=== PATIENT | male | born 1950 ===

== ENCOUNTER 2022-04-02 07:25 | Inpatient (IN) | payer OTHER, MEDICARE ==
[~2022-04-02] VITALS: Ht 175.3 cm; Wt 83.0 kg
[2022-04-02] MEDS ORDERED: ipratropium/albuterol 3ml nebule NEB ONE (07:30)
[2022-04-02] MEDS ORDERED: albuterol 2.5 MG/3 ML nebule CONTNEB PRN (07:30)
[2022-04-02] MEDS ORDERED: methylPREDNISolone sod succ 125mg/2ml vial IV ONE (07:30)
[2022-04-02] MEDS ORDERED: albuterol 2.5 MG/3 ML nebule ONE (07:37)
[2022-04-02] MEDS ORDERED: furosemide 10 MG/1 ML 10ml inj IV ONE (07:50)
--- NOTE | 2022-04-02 07:50 | NUR ---
RT AT BEDSIDE, PLACING PT ON BIPAP AND DRAWING ABG
[2022-04-02 08:14] LABS: ABG BASE EXCESS -11.8 mmol/L (-2.0-2.0); ABG HCO3 15.2 mmol/L (22.0-26.0); ABG OXYGEN SATURATION 99.2 % (94-97); ABG PCO2 (T) 37.1 mmHg (35.0-48.0); ABG PO2 (T) 436.8 mmHg (75.0-100.0); FCOHb 0.9 % (0.0-3.9); FMetHb 0.2 % (0.0-1.5); FO2Hb 98.1 % (94-97); PATIENT TEMPERATURE 36.5; RESPIRATORY RATE 10 b/min; TIDAL VOLUME 977 mL; TOTAL HEMOGLOBIN 13.8 G/dl (14.0-17.9)
[2022-04-02 08:23] LABS: BASOPHILS % (AUTO) 0.2 % (0-1); EOSINOPHILS % (AUTO) 0 % (0-6); HEMATOCRIT 39.1 % (42.0-52.0); HEMOGLOBIN 12.8 g/dl (14.0-17.9); LYMPHOCYTES # (AUTO) 0.8 X10'3 (1.1-4.8); MEAN CORPUSCULAR HEMOGLOBIN 31.6 PG (27.0-31.0); MEAN CORPUSCULAR HGB CONC 32.6 g/dL (33.0-36.5); MEAN CORPUSCULAR VOLUME 96.9 FL (78-98); MEAN PLATELET VOLUME 6.4 FL (7.4-10.4); MONOCYTES # (AUTO) 0.7 X10'3 (0-0.9); MONOCYTES % (AUTO) 4.5 % (2-12); NEUTROPHILS # (AUTO) 14.6 X10'3 (1.8-7.7); NEUTROPHILS % (AUTO) 90.3 % (42-75); PLATELET COUNT 434 X10'3 (140-440); RED BLOOD COUNT 4.04 X10'6 (4.70-6.10); RED CELL DISTRIBUTION WIDTH 13.8 % (11.5-14.5); WHITE BLOOD COUNT 16.2 X10'3 (4.5-11.0)
--- NOTE | 2022-04-02 08:41 | NUR ---
PT HAS DRAMATICALLY IMPROVED. RR DOWN TO 10 ON BIPAP AT 40% FIO2 - PT IS RESTING WITH EYES CLOSED AND NO LONGER SHOWING OUTWARD S\S DISTRESS.
--- NOTE | 2022-04-02 09:18 | NUR ---
ECHO AT BEDSIDE - MD WAS JUST DOING RE-EVAL, STATES OK TO TRIAL OFF BIPAP AND USE N\C, WILL TAKE PT OFF BIPAP AFTER ECHO IS DONE.
[2022-04-02 09:31] LABS: ALANINE AMINOTRANSFERASE 37 U/L (12-78); ALBUMIN 3.8 G/DL (3.4-5.0); ALBUMIN/GLOBULIN RATIO 0.8 (1.1-1.5); ALKALINE PHOSPHATASE 106 IU/L (46-116); ANION GAP 13 (8-16); ASPARTATE AMINO TRANSFERASE 64 U/L (10-37); BILIRUBIN,TOTAL 0.4 MG/DL (0.1-1.0); BLOOD UREA NITROGEN 67 MG/DL (7-18); BUN/CREATININE RATIO 22.3 (5.4-32.0); CALCIUM 9.1 MG/DL (8.5-10.1); CHLORIDE 106 MMOL/L (99-107); GLUCOSE 166 MG/DL (70-104); SODIUM 140 MMOL/L (135-145); TOTAL CARBON DIOXIDE 21.2 MMOL/L (24-32); TOTAL PROTEIN 8.4 G/DL (6.4-8.2); eGFR 21 ML/MIN
[2022-04-02] MEDS ORDERED: SODIUM ZIRCONIUM CYCLOSILICATE 10 GM POWD.PACK PO STA (09:43)
[2022-04-02] MEDS ORDERED: calcium chloride 100 MG/1 ML inj IV ONE (09:45)
[2022-04-02] MEDS ORDERED: insulin regular, human U-100 3ml vial - multi-dose IV ONE (09:45)
[2022-04-02] MEDS ORDERED: dextrose 50%-water 50ml dispensing syringe IV ONE (09:45)
--- NOTE | 2022-04-02 10:08 | NUR ---
TRIALED PT OFF BIPAP- AFTER ABOUT 2 MINUTES HE BECAME RESTLESS AND STATED HE COULDN'T BREATHE. SATS WERE 95 ON 2L VIA N\C - HE WAS PLACED BACK ON BIPAP AND IS IMPROVING. CALLED PHARMACY TO ALERT THEM THAT WE DO NOT HAVE LOKELMA OR INSULIN IN OUR [facility] - WILL MEDICATE PT RAVINDER.
[2022-04-02] MEDS ORDERED: aspirin 81mg tab.chew PO ONE (10:55)
[2022-04-02] MEDS ORDERED: nitroGLYCERIN-Tridil 50MG/D5W 250 ML IV PRN (10:55)
[2022-04-02] MEDS ORDERED: ondansetron/PF 4mg/2ml inj IV PRN (11:05)
[2022-04-02] MEDS ORDERED: magnesium Cl slow-release 64mg tablet PO PRN (11:05)
[2022-04-02] MEDS ORDERED: acetaminophen 325mg tablet PO PRN (11:05)
[2022-04-02] MEDS ORDERED: potassium Cl 40MEQ/1/2NS 520ml 520 ML IV PRN (11:05)
[2022-04-02] MEDS ORDERED: normal saline 1000ml 1,000 ML IV SCH (11:05)
[2022-04-02] MEDS ORDERED: potassium Cl 20 mEq SR tablet PO PRN ×2 (11:05)
[2022-04-02] MEDS ORDERED: magnesium 4gm in 100ml NS 100 ML IV PRN (11:05)
--- NOTE | 2022-04-02 11:45 | NUR ---
PER MD TITRATE NTG DRIP TO KEEP SYSTOLIC ABOVE 100 PT RESTING AT THIS TIME. HE HAS YET TO HAVE URINE OUTPUT SINCE RECEIVING THE 80MG LASIX EARLIER THIS MORNING.
[2022-04-02] MEDS ORDERED: NALO4SPR BOTHNARES (14:46)
[2022-04-02] MEDS ORDERED: AMLO2.5T2 PO (14:46)
[2022-04-02] MEDS ORDERED: UMEC62.5 INH (14:46)
[2022-04-02] MEDS ORDERED: LISI5TAB22 PO (14:46)
[2022-04-02] MEDS ORDERED: TRAZ-251 PO (14:46)
[2022-04-02] MEDS ORDERED: FURO-150 PO (14:46)
[2022-04-02] MEDS ORDERED: ATOR10TA87 PO (14:46)
[2022-04-02] MEDS ORDERED: GABA600T13 PO (14:46)
[2022-04-02 15:51] LABS: ALBUMIN 3.5 G/DL (3.4-5.0); ANION GAP 16 (8-16); BLOOD UREA NITROGEN 70 MG/DL (7-18); BUN/CREATININE RATIO 23.4 (5.4-32.0); CALCIUM 9.8 MG/DL (8.5-10.1); CHLORIDE 104 MMOL/L (99-107); CREATININE 2.99 MG/DL (0.60-1.10); GLUCOSE 169 MG/DL (70-104); POTASSIUM 5.4 MMOL/L (3.5-5.1); SODIUM 139 MMOL/L (135-145); TOTAL CARBON DIOXIDE 18.9 MMOL/L (24-32); eGFR 21 ML/MIN
--- NOTE | 2022-04-02 15:56 | NUR ---
HOSPITALIST PAGED REGARDING ELEVATED TROPONINS. NEED TO CLARIFY IF PT SHOULD BE RECEIVING HEPARIN OR LOVENOX.
[2022-04-02] MEDS ORDERED: heparin 10,000 units/1 ML INJ IV ONE ×2 (16:05)
[2022-04-02] MEDS ORDERED: heparin 10,000 units/1 ML INJ IV PRN (16:05)
[2022-04-02 16:38] LABS: APTT 24 SECONDS (22-32)
--- NOTE | 2022-04-02 16:45 | NUR ---
Patient in room PCU 3012. I have received report from Vini CARCAMO and had the opportunity to ask questions and assume patient care.Pt settled into room, venti mask 40%. pt brea attached. Hep gtt started. Addendum: 04/02/22 at 1747 by Mikayla Ramos RN Amended: Links added.
[2022-04-02 16:50] VITALS: BP 123/65
[2022-04-02] MEDS: heparin 25,000 UNIT/250ml bag 250 ML IV PRN (17:18)
--- NOTE | 2022-04-02 18:20 | NUR ---
Problems reprioritized. Patient report given, questions answered & plan of care reviewed with Roberto CARCAMO. Bedside report completed.Pt o2 sat 96 on 40% venti mask.hep gtt AT 1000 units/hr. Addendum: 04/02/22 at 1823 by Mikayla Ramos RN Amended: Links added.
[2022-04-02] MEDS ORDERED: ASPI-1071 PO (18:43)
[2022-04-02] MEDS ORDERED: BUDE10.2 IH (18:44)
[2022-04-02] MEDS ORDERED: TEST75GE10 TOP (18:45)
[2022-04-02] MEDS ORDERED: VENL75TA4 PO (18:45)
[2022-04-02] MEDS ORDERED: CHOL20004 PO (18:46)
[2022-04-02] MEDS ORDERED: ALBU17AE26 IH (18:47)
[2022-04-02] MEDS ORDERED: DICL100G30 TOP (18:50)
[2022-04-02] MEDS ORDERED: HYDR-3972 PO (18:51)
[2022-04-02] MEDS ORDERED: OMEP20CA16 PO (18:52)
[2022-04-02] MEDS ORDERED: CARB1DRO5 OP (18:53)
[2022-04-02] MEDS ORDERED: TIZA-205 PO (18:55)
[2022-04-02] MEDS ORDERED: SENN-263 PO (18:55)
[2022-04-02] MEDS ORDERED: TRIA15CR61 TOP (18:56)
[2022-04-02 19:15] VITALS: BP 123/65
[2022-04-02] MEDS: aspirin 81mg, enteric-coated 1 TAB TABLET.DR PO SCH (19:15)
[2022-04-02] MEDS ORDERED: polyvinyl alcohol ophthalmic drops 15ml bottle EACHEYE PRN (19:15)
[2022-04-02] MEDS ORDERED: traZODone 50mg tablet PO PRN (19:15)
[2022-04-02] MEDS ORDERED: sennosides 8.6mg tablet PO PRN (19:15)
[2022-04-02] MEDS ORDERED: tizanidine 4mg tablet PO PRN (19:15)
[2022-04-02] MEDS: K and/or MAG REPLACEMENT MC SCH (19:42)
[2022-04-02] MEDS: HYDROcodone/acetaminophen 10/325mg tab PO PRN (19:57)
[2022-04-02] MEDS: venlafaxine 37.5mg tablet PO SCH (20:00)
[2022-04-02 22:00] VITALS: BP 127/71
--- NOTE | 2022-04-03 | NUR ---
Pt. is awake alert oriented on Cardiac Heparin gtt at 1000 u/hr. no c/o pain or discomfort on FM 10L. Coughing intermittently pink tinged secretions, voids per urinal yellow clear urine. Pt. c/o Sob and feeling hot and sweating. Placed on BIPAP 40% tolerated well. Cool packs applied stated felt better medicated for generalized aches tolerated well slept x 3 hours. .
[2022-04-03] MEDS: heparin 25,000 UNIT/250ml bag 250 ML IV PRN (00:30)
[2022-04-03 02:00] VITALS: BP 132/63
--- NOTE | 2022-04-03 04:00 | NUR ---
Pt. attempted to get out of bed without assistance. Placed on BS Commode had large dark brown and maroon/ melanotic stool. notified Heparin gtt stopped. CBC drawn results noted.
[2022-04-03 05:27] LABS: BASOPHILS # (AUTO) 0.1 X10'3 (0-0.2); BASOPHILS % (AUTO) 0.4 % (0-1); EOSINOPHILS % (AUTO) 0 % (0-6); HEMATOCRIT 27.8 % (42.0-52.0); HEMOGLOBIN 8.9 g/dl (14.0-17.9); LYMPHOCYTES # (AUTO) 1.2 X10'3 (1.1-4.8); LYMPHOCYTES % (AUTO) 7.7 % (21-51); MEAN CORPUSCULAR HEMOGLOBIN 30.7 PG (27.0-31.0); MEAN CORPUSCULAR VOLUME 95.9 FL (78-98); MEAN PLATELET VOLUME 6.7 FL (7.4-10.4); MONOCYTES # (AUTO) 1.2 X10'3 (0-0.9); MONOCYTES % (AUTO) 7.2 % (2-12); NEUTROPHILS # (AUTO) 13.7 X10'3 (1.8-7.7); NEUTROPHILS % (AUTO) 84.7 % (42-75); PLATELET COUNT 306 X10'3 (140-440); RED CELL DISTRIBUTION WIDTH 13.6 % (11.5-14.5); WHITE BLOOD COUNT 16.1 X10'3 (4.5-11.0)
[2022-04-03 05:44] LABS: ALBUMIN 3.1 G/DL (3.4-5.0); ANION GAP 11 (8-16); BLOOD UREA NITROGEN 102 MG/DL (7-18); CALCIUM 8.8 MG/DL (8.5-10.1); CHLORIDE 105 MMOL/L (99-107); CREATININE 2.49 MG/DL (0.60-1.10); GLUCOSE 118 MG/DL (70-104); MAGNESIUM 2.2 MG/DL (1.5-2.4); POTASSIUM 4.5 MMOL/L (3.5-5.1); SODIUM 138 MMOL/L (135-145); eGFR 26 ML/MIN
[2022-04-03 08:00] VITALS: BP 132/59
[2022-04-03] MEDS: K and/or MAG REPLACEMENT MC SCH ×2 (08:00→20:00)
[2022-04-03] MEDS: TESTOSTERONE PUMP TOP SCH (08:00)
[2022-04-03] MEDS: aspirin 81mg, enteric-coated 1 TAB TABLET.DR PO SCH (08:00)
[2022-04-03] MEDS: venlafaxine 37.5mg tablet PO SCH ×2 (09:02→20:00)
[2022-04-03] MEDS: HYDROcodone/acetaminophen 10/325mg tab PO PRN ×3 (09:07→20:03)
[2022-04-03 11:00] VITALS: BP 95/71
--- NOTE | 2022-04-03 12:45 | NUR ---
PAGER ID: [phone] MESSAGE: Roslyn [phone] RE: Ace Sibley room 3012B - can we feed him or keep NPO
--- NOTE | 2022-04-03 14:43 | NUR ---
PAGER ID: [phone] MESSAGE: Roslyn [phone] RE: Ace Toñito room 3012B - patient having a hard time breathing - RT notified. Can we get Albuterol ordered for RT PRN.
[2022-04-03] MEDS ORDERED: dextrose 5%-water 1,000 ML IV SCH (14:47)
[2022-04-03 15:00] VITALS: BP 172/86
[2022-04-03] MEDS: ipratropium/albuterol 3ml nebule NEB SCH ×3 (15:01→23:07)
[2022-04-03 15:44] LABS: % IRON SATURATION 43 % (11-46); IRON 102 UG/DL (53-167); TOTAL IRON BINDING CAPACITY 237 UG/DL (259-388)
[2022-04-03 18:00] VITALS: BP 108/57
--- NOTE | 2022-04-03 18:35 | NUR ---
Problems reprioritized. Patient report given, questions answered & plan of care reviewed with Eileen, RN.
[2022-04-03] MEDS: pantoprazole 40mg Tablet.DR PO PRN (20:02)
[2022-04-03] MEDS: methylPREDNISolone sod succ 125mg/2ml vial IV SCH (21:01)
[2022-04-03 22:00] VITALS: BP 113/59
[2022-04-04] VITALS (7 sets, daily range): BP systolic 68–170; BP diastolic 33–98
--- NOTE | 2022-04-04 | NUR ---
Pt. is awake alert oriented and in good spirits, agreed to stay in facility for and additional night until lungs are better.Pt. is on 3L NC tolerating well. Pt. has a peripheral IV with D5W infusing. Pt. became out of breath and pale and diaphoretic when off of 02, pt. attempted to use the urinal without assistance with 02 off. Monitor showed Junctional rhythm at 60 b/m bp check 114/53 sitting. Pt. placed back to bed placed on BIPAP 40%. Tolerated well monitor shows rhythm back to NSR 90 BP 143/63 supine.
[2022-04-04] MEDS: ipratropium/albuterol 3ml nebule NEB SCH ×3 (02:27→11:02)
--- NOTE | 2022-04-04 06:21 | NUR ---
Patient in room PCU 3012. I have received report from CARLOS ALBERTO Arlelano and had the opportunity to ask questions and assume patient care.
[2022-04-04 07:11] LABS: BASOPHILS % (AUTO) 0.1 % (0-1); EOSINOPHILS % (AUTO) 0 % (0-6); HEMATOCRIT 25.1 % (42.0-52.0); HEMOGLOBIN 8.5 g/dl (14.0-17.9); LYMPHOCYTES # (AUTO) 0.6 X10'3 (1.1-4.8); LYMPHOCYTES % (AUTO) 7.6 % (21-51); MEAN CORPUSCULAR HEMOGLOBIN 32.1 PG (27.0-31.0); MEAN CORPUSCULAR HGB CONC 33.7 g/dL (33.0-36.5); MEAN CORPUSCULAR VOLUME 95.3 FL (78-98); MEAN PLATELET VOLUME 6.5 FL (7.4-10.4); MONOCYTES # (AUTO) 0.3 X10'3 (0-0.9); MONOCYTES % (AUTO) 3.7 % (2-12); NEUTROPHILS # (AUTO) 7.4 X10'3 (1.8-7.7); NEUTROPHILS % (AUTO) 88.6 % (42-75); PLATELET COUNT 308 X10'3 (140-440); RED BLOOD COUNT 2.64 X10'6 (4.70-6.10); RED CELL DISTRIBUTION WIDTH 13.3 % (11.5-14.5); WHITE BLOOD COUNT 8.4 X10'3 (4.5-11.0)
[2022-04-04 07:18] LABS: ALBUMIN 3.4 G/DL (3.4-5.0); ANION GAP 11 (8-16); BLOOD UREA NITROGEN 80 MG/DL (7-18); BUN/CREATININE RATIO 38.8 (5.4-32.0); CHLORIDE 105 MMOL/L (99-107); CREATININE 2.06 MG/DL (0.60-1.10); GLUCOSE 168 MG/DL (70-104); POTASSIUM 4.4 MMOL/L (3.5-5.1); SODIUM 138 MMOL/L (135-145); TOTAL CARBON DIOXIDE 21.8 MMOL/L (24-32); eGFR 32 ML/MIN
[2022-04-04] MEDS: methylPREDNISolone sod succ 125mg/2ml vial IV SCH (07:59)
[2022-04-04] MEDS ORDERED: sod chloride 0.9% 10ml flush syringe IV ONE (08:00)
[2022-04-04] MEDS ORDERED: rocuronium 10mg/ml inj IV ONE ×2 (08:00→12:29)
[2022-04-04] MEDS: pantoprazole 40mg Tablet.DR PO PRN (08:00)
[2022-04-04] MEDS ORDERED: calcium chloride 100 MG/1 ML inj IV ONE (08:00)
[2022-04-04] MEDS: aspirin 81mg, enteric-coated 1 TAB TABLET.DR PO SCH (08:00)
[2022-04-04] MEDS ORDERED: epiNEPHrine 0.1mg/ml 10ml syringe ONE (08:00)
[2022-04-04] MEDS: TESTOSTERONE PUMP TOP SCH (08:00)
[2022-04-04] MEDS: venlafaxine 37.5mg tablet PO SCH (08:00)
[2022-04-04] MEDS ORDERED: atropine 0.1mg/ml 10ml syringe ONE (08:00)
[2022-04-04] MEDS ORDERED: etomidate 2mg/ml inj. ONE (08:00)
[2022-04-04] MEDS ORDERED: sodium bicarbonate (8.4%) 1 mEq/ml syringe ONE (08:00)
[2022-04-04] MEDS ORDERED: DOBUTamine/D5W 500mg/250ml premix IV ONE (08:00)
[2022-04-04] MEDS ORDERED: DOPamine/D5W 400mg/250ml bag IV ONE (08:00)
[2022-04-04] MEDS ORDERED: heparin, porcine-25,000 units/D5-250ml premix IV ONE (08:00)
[2022-04-04] MEDS: K and/or MAG REPLACEMENT MC SCH (08:00)
[2022-04-04] MEDS: HYDROcodone/acetaminophen 10/325mg tab PO PRN (08:01)
--- NOTE | 2022-04-04 10:01 | NUR ---
PAGER ID: [phone] MESSAGE: Roslyn [phone] [facility] - patient very anxious complains he is having hard time breathing. Can we get some Ativan for him? Thank you.
[2022-04-04] MEDS ORDERED: pantoprazole 40mg IV 40 MG in normal saline 100ml IV soln 100 ML IV SCH (11:05)
[2022-04-04] MEDS ORDERED: furosemide 40mg/4ml inj IV ONE (11:05)
--- NOTE | 2022-04-04 11:07 | NUR ---
ORDERS FOR PROTONIX AND LASIX ORDERED PER DR. HERNANDEZ
--- NOTE | 2022-04-04 11:13 | NUR ---
Paged PAGER ID: [phone] MESSAGE: [id number]. Toñito. Pt c/o chest pain. EKG in process. Morphine? Pls advise Thx
--- NOTE | 2022-04-04 11:25 | NUR ---
pAGED PAGER ID: [phone] MESSAGE: [id number]. CARLOTTA. COME SEE EK LULI/ THXGRISELDA [id number]
[2022-04-04] MEDS ORDERED: nitroGLYCERIN 0.4mg SUBLingual tab SL PRN (11:30)
[2022-04-04] MEDS ORDERED: digoxin 250mcg/ml 2ml ampule IV STA (11:40)
[2022-04-04] MEDS ORDERED: digoxin 250mcg/ml 2ml ampule IV ONE (11:42)
[2022-04-04] MEDS ORDERED: metoprolol tartrate 1mg/ml inj IV ONE (11:42)
[2022-04-04] MEDS ORDERED: CefTRIAXone/D5W-Rocephin 1gm 50 ML IV STA (11:45)
[2022-04-04] MEDS ORDERED: morphine 2 MG/ML inj. syringe IV ONE (11:45)
[2022-04-04] MEDS ORDERED: azithromycin/NS 500mg/250ml 250 ML IV ONE (11:46)
[2022-04-04] MEDS ORDERED: nitroGLYCERIN 1gm ointment UD TP STA (12:01)
[2022-04-04 12:03] LABS: ABG HCO3 11.9 mmol/L (22.0-26.0); ABG PCO2 (T) 21.4 mmHg (35.0-48.0); ABG PO2 (T) 92.2 mmHg (75.0-100.0); ALLEN'S TEST POSITIVE; FCOHb 0.2 % (0.0-3.9); FMetHb 0.1 % (0.0-1.5); FO2Hb 96.7 % (94-97); RESPIRATORY RATE 10 b/min; TIDAL VOLUME 1442 mL; TOTAL HEMOGLOBIN 8.7 G/dl (14.0-17.9)
[2022-04-04] MEDS ORDERED: etomidate 2mg/ml inj. IV ONE (12:20)
[2022-04-04] MEDS ORDERED: WATER IV SCH (12:26)
[2022-04-04] MEDS ORDERED: SODIUM BICARBONATE IV SCH (12:26)
[2022-04-04] MEDS ORDERED: DEXTROSE 5% IV SCH (12:26)
[2022-04-04] MEDS ORDERED: MIDAZolam 5mg/ml 2ml vial IV ONE (12:37)
[2022-04-04] MEDS ORDERED: LORazepam 2 mg/ml vial IV ONE (12:37)
[2022-04-04] MEDS ORDERED: sodium bicarbonate (8.4%) inj. 50 MEQ in dextrose 5%-water 1,000 ML IV SCH (12:39)
[2022-04-04] MEDS ORDERED: midazolam 1 mg/ML 2ml injection ONE ×2 (12:41→12:44)
--- NOTE | 2022-04-04 12:44 | NUR ---
Assisted Dr. Steiner with intubation at bedside RT nurses and LO[employer] Najma at bedside 1 amp epi given new IV #20 lft arm for HR 47 and drop in b/p Dopamine gtt started as well as fluids per Dr. Steiner Pt transported to CICU
[2022-04-04] MEDS ORDERED: heparin 1,000 UNITS/NS 500ml 0 ML ONE (12:55)
[2022-04-04] MEDS ORDERED: iohexol 350 MG/ML 50ML vial IV ONE (12:55)
[2022-04-04] MEDS ORDERED: iohexol 350MG/ML 100ml bottle IV ONE (12:55)
--- NOTE | 2022-04-04 13:00 | NUR ---
Patient was complaining of chest pain during breathing treatment around 1130, so EKG was done and Dr. Espinoza made aware per protocol. The HR that had been consistently in the 120s had suddenly dropped into the 50s. Dr. Espinoza was bedside and signed off on the 12 lead EKG that was done. When speaking to Dr. Espinoza I had informed her that the patient did [facility] have [facility] and I spoke with Dr. Shalom worley who had ordered a one time dose of 40mg of Lasix. During this time we had called a rapid response at the same time as we were doing the 12 lead EKG. Around 1200, Dr. Nava was on the floor and I looked over the 12 lead EKG with him because I thought I had seen some ST elevation in the [address] Espinoza had signed off on. Dr. Nava saw the same thing, but he was not the hogshead inspector paraprofessional education assistant. Dr. Espinoza was still on the floor and was advised to call the hogshead inspector paraprofessional education assistant and we did another 12 lead EKG to confirm our findings. During that time Najma Apodaca NP came in to take the patient to the flue dust laborer. Since the patient was on BiPAP the patient had to be intubated in order to take down to the flue dust laborer. Bedside intubation with Dr. Steiner happened at 1245, and once the intubation happened the patient was taken down to CICU.
[2022-04-04 13:16] LABS: BASOPHILS % (AUTO) 0.1 % (0-1); EOSINOPHILS % (AUTO) 0 % (0-6); HEMATOCRIT 25.2 % (42.0-52.0); HEMOGLOBIN 8.2 g/dl (14.0-17.9); LYMPHOCYTES # (AUTO) 0.6 X10'3 (1.1-4.8); LYMPHOCYTES % (AUTO) 5.2 % (21-51); MEAN CORPUSCULAR HGB CONC 32.4 g/dL (33.0-36.5); MEAN CORPUSCULAR VOLUME 95.8 FL (78-98); MEAN PLATELET VOLUME 7.1 FL (7.4-10.4); MONOCYTES # (AUTO) 0.4 X10'3 (0-0.9); MONOCYTES % (AUTO) 3.6 % (2-12); NEUTROPHILS # (AUTO) 10.7 X10'3 (1.8-7.7); NEUTROPHILS % (AUTO) 91.1 % (42-75); PLATELET COUNT 341 X10'3 (140-440); RED BLOOD COUNT 2.63 X10'6 (4.70-6.10); RED CELL DISTRIBUTION WIDTH 13.6 % (11.5-14.5); WHITE BLOOD COUNT 11.7 X10'3 (4.5-11.0)
--- NOTE | 2022-04-04 13:30 | NUR ---
Dr matias at bedside and placing CL and Cielo right groin Pt becoming ASYSTOLIC ePI GIVEN AND AMP OF SODUIM BICARB cpr STARED AND rt AT BEDSIDE see cODE SHEET
[2022-04-04] MEDS ORDERED: epiNEPHrine inj 5 MG in normal saline 250ml IV soln 245 ML IV PRN (13:34)
[2022-04-04 13:56] LABS: ABG HCO3 16.3 mmol/L (22.0-26.0); ABG OXYGEN SATURATION 99.1 % (94-97); ABG PCO2 (T) 38.3 mmHg (35.0-48.0); FCOHb 0.3 % (0.0-3.9); FLOW 15 L/min; FMetHb 0.5 % (0.0-1.5); FO2Hb 98.3 % (94-97); TOTAL HEMOGLOBIN 6.7 G/dl (14.0-17.9)
[2022-04-04] MEDS ORDERED: epiNEPHrine 0.1mg/ml 10ml syringe IV ONE (14:00)
[2022-04-04] MEDS ORDERED: sodium bicarbonate (8.4%) 1 mEq/ml syringe IV ONE (14:00)
--- NOTE | 2022-04-04 14:10 | NUR ---
RN IS TO DOCUMENT YES TO ALL APPLICABLE AREAS Pronouncement of : 1. Time Physician Notified:[id number] 2. Date of :04/04/22 3. Time of : 1409 4. DNR/Withdraw life support documented: 5. Monitor strip has been placed on chart:YES 6. Assessment process is of one-minute duration and includes following criteria: a) Patient is unresponsive to all stimuli: b) Pupils fixed and non-reactive: c) Auscultation of precordium reveals absence of heart tones: d) Auscultation of lungs reveals absence of breath sounds: e) Absence of blood pressure / all vital signs: f) QRS complexes are not present on monitor / EKG strip: g) Pacer spikes without capture: 4. Comments: PT CONT CODED FROM 4560 TO 1410 SEE CODE SHEET
[2022-04-04] MEDS ORDERED: amiodarone/D5 360MG/200ML BAG 200 ML IV SCH (14:45)
[2022-04-04] MEDS ORDERED: SODIUM BICARBONATE 150MEQ IN D5W 1,000 ML IV ONE (14:45)
[2022-04-04] MEDS ORDERED: DOBUTamine 2000 MCG/250ML BAG IV SCH (14:50)
--- NOTE | 2022-04-04 15:54 | NUR ---
Patient was complaining of difficulty breathing this morning and the breathing treatments were not helping. At 1113 Dr. Espinoza was paged and notified that the patient was complaining of chest pain. An EKG was done per protocol. The provider was notified again at 1125 to please come and look at the EKG. The provider asked us to take the EKG to her office and looked at it and signed off on it. During this time the patient continued to look vary pale and struggle with his breathing while reporting chest pain. When asked if he knew the year we are in and who the president was the patient was unable to respond. ordered Metoprolol and Nitro sublingual and asked us to notify her when he stabilizes. That was prior to seeing the patient bedside. Around 1200 the provider came to see the patient and ordered additional medication. By that time the patient's HR which had spiked previously was now in the 50's. We called the rapid response team but the provider thought that he was OK and sent them away. At some point Najma Benoit, ELLI was consulted and she came and took over care of the patient together with Dr. Steiner. Intubation was done at bedside by Dr. Steiner and Najma Benoit. Dr. Steiner decided that the patient needed to be transferred to the ICU.
--- NOTE | 2022-04-04 22:09 | NUR ---
multiple calls to [facility] for roller picker, continuing to wait confirmation time.
[2022-04-06 21:03] LABS: A/G RATIO 1.1 (0.7-1.7); ALBUMIN 3.3 g/dL (2.9-4.4); GAMMA GLOBULIN 0.8 g/dL (0.4-1.8); GLOBULIN, TOTAL 3.1 g/dL (2.2-3.9); M-SPIKE 0.4 g/dL (Not Observed); PROTEIN, TOTAL, SERUM 6.4 g/dL (6.0-8.5)
== END 2022-04-04 23:16 | DRG 871 ==
LOC: ER 07:26 → ED HOLD 11:14 → PCU 3S 17:04 → CICU 2S 04-04 13:20
PROVIDERS: ADMIT Internal Medicine; ATTEND Internal Medicine
PROC: 5A09357 Assistance with Respiratory Ventilation, Less than 24 Consecutive Hours, Continuous Positive Airway Pressure (ICD-10-PCS; principal; 2022-04-03)
PROC: 5A09357 Assistance with Respiratory Ventilation, Less than 24 Consecutive Hours, Continuous Positive Airway Pressure (ICD-10-PCS; 2022-04-04)
PROC: 5A12012 Performance of Cardiac Output, Single, Manual (ICD-10-PCS; 2022-04-04)
PROC: 5A1935Z Respiratory Ventilation, Less than 24 Consecutive Hours (ICD-10-PCS; 2022-04-04)
PROC: 0BH17EZ Insertion of Endotracheal Airway into Trachea, Via Natural or Artificial Opening (ICD-10-PCS; 2022-04-04)
PROC: 02HV33Z Insertion of Infusion Device into Superior Vena Cava, Percutaneous Approach (ICD-10-PCS; 2022-04-04)
PROC: B548ZZA Ultrasonography of Superior Vena Cava, Guidance (ICD-10-PCS; 2022-04-04)
PROC: 04HY32Z Insertion of Monitoring Device into Lower Artery, Percutaneous Approach (ICD-10-PCS; 2022-04-04)
DX: A41.9 Sepsis, unspecified organism (principal); I21.19 ST elevation (STEMI) myocardial infarction involving other coronary artery of inferior wall; I50.23 Acute on chronic systolic (congestive) heart failure; J96.01 Acute respiratory failure with hypoxia; J18.9 Pneumonia, unspecified organism; E87.20 Acidosis, unspecified; I13.0 Hypertensive heart and chronic kidney disease with heart failure and stage 1 through stage 4 chronic kidney disease, or unspecified chronic kidney disease; J44.1 Chronic obstructive pulmonary disease with (acute) exacerbation; K92.2 Gastrointestinal hemorrhage, unspecified; N17.9 Acute kidney failure, unspecified; J44.0 Chronic obstructive pulmonary disease with (acute) lower respiratory infection; I95.9 Hypotension, unspecified; D63.8 Anemia in other chronic diseases classified elsewhere; Z20.822 Contact with and (suspected) exposure to COVID-19; E78.5 Hyperlipidemia, unspecified; I48.91 Unspecified atrial fibrillation; E87.5 Hyperkalemia; F17.200 Nicotine dependence, unspecified, uncomplicated; I46.9 Cardiac arrest, cause unspecified; I49.01 Ventricular fibrillation; N18.9 Chronic kidney disease, unspecified; Z79.899 Other long term (current) drug therapy; R57.0 Cardiogenic shock
CPT/HCPCS: 36415; 36600; 71045; 76770; 80048; 80053; 82803; 82948; 83540; 83550; 83735; 83880; 84155; 84165; 84484; 85018; 85025; 85610; 85730; 87040; 87081; 87502; 87503; 87635; 92950; 93005; 93306; 94002; 94640; 94660; 94760; 94799; 97116; 97161; 97530; 99285; A4615; A6213; A6258; A6449; A7015; C9803; G0378; J0171; J0461; J1160; J1250; J1265; J1644; J1815; J1940; J2250; J2930; J3490; J7030; J7040; J7070; Q9967